=== PATIENT | female | born 1995 | race Hispanic/Latino ===

== ENCOUNTER 2017-04-27 12:48 | Outpatient (CLI) | payer OTHER ==
--- OUTSIDE RECORDS SUMMARY | 2017-04-27 13:41 | XMS | Clinical Summary ---
:1995 Author Organization [facility] Address [address] [place] [address] Phone Care Team Providers Name Role Phone , Primary Care Provider Unavailable Allergies Not on File Current Medications Not on file Active Problems Not on file Social History Tobacco Use Types Packs/Day Years Used Date Never Assessed Sex Assigned at Date Recorded Not on file Last Filed Vital Signs Not on file Plan of Treatment Not on file Results Not on filefrom Last 3 Months
--- NOTE | 2017-04-27 19:31 | ULT ---
OB ULTRASOUND: Date: 04-10-17 History: Positive . Evaluate for size and dates. FINDINGS: There is a single intrauterine gestation in breech presentation. Cardiac doppler demonstrates heart tones with a heart rate of 127 bpm. The placenta is located anteriorly and is low lying. However, the low lying appearance of the placenta may be related to distention of the urinary bladd er falsely giving the appearance of a low lying placenta. Follow up evaluation is recommended. There is a normal amount of amniotic fluid with an amniotic fluid index of 10.5 cm. The cervical length b ased on transabdominal imaging is 4.49 cm. measurements: BPD: 5.32 cm 22 weeks 1 day HC 20.62 cm 22 weeks 5 days AC 17.8 cm 22 weeks 5 days FL 4.1 cm 23 weeks 2 days Estimated gestational age by ultrasound is 22 weeks 4 days with an JOLIE on 08-27-17. Gestational age by the last menstrual period is 23 weeks 1 day. Estimated weight by ultrasound is 544 grams (l lbs. 3 oz). This represents 31 percentile for f etal weight. The cerebellum, visualized portions of the spine, four chamber heart, stomach, bilateral kidne ys, urinary bladder, three vessel cord, and cord insertion demonstrate a normal sonographic appearan ce. There is mild prominence of each renal pelvis, but the AP dimension measures less than 5 mm whic h is within normal limits for patient's gestational age. No definite anomaly is appreciated. IMPRESSION: 1. Low lying placenta. However, the urinary bladder is distended which may give false impression of low lying placenta. As a result, follow up evaluation is recommended in four weeks. 2. Single intrauterine gestation in breech presentation with heart tones documented. Estimated gestational age by ultrasound is 22 weeks 4 days with an JOLIE on 08-27-17. 3. Estimated weight is 544 grams (1 lbs. 3 oz). 4. Amniotic fluid index is 10.5 cm. POS: [facility]
== END 2017-04-27 12:49 | disposition home or self-care (01) ==
LOC: SCSULT 12:48
PROVIDERS: ATTEND Family Medicine
DX: N91.2 Amenorrhea, unspecified (principal)
CPT/HCPCS: 76805

== ENCOUNTER 2017-07-10 10:11 | Day surgery (SDC) | payer OTHER ==
[2017-07-10 10:49] VITALS: BMI 21.6
[2017-07-10] MEDS ORDERED: Ondansetron HCl/PF 4 MG/2 ML Vial IVP PRN (11:05)
[2017-07-10] MEDS ORDERED: Lactated Ringer's 1,000 ML IV SCH (11:15)
[2017-07-10 11:37] LABS: Bilirubin Negative (Negative); Blood, Urine Negative (Negative); Clarity CLEAR (Clear); Glucose, Urine (Dipstick) Negative (Negative); Leukocyte Trace (Negative); Nitrite Negative (Negative); Protein, Urine (Dipstick) 30 mg/dL (Neg-Trace); Specific Gravity, Urine 1.023 (1.002-1.036)
[2017-07-10 11:39] LABS: Bacteria/HPF Rare-Few HPF (None Seen); Hyaline Casts/LPF 4-6 HYALINE CAST LPF (0-3 Hyaline); Pathc Cast-AUWi Flag 1.35 (0-2.49); RBC/HPF 0-3 HPF (0-3)
[2017-07-10] MEDS: D5 LR 500 ML IV SCH ×2 (11:45→13:45)
[2017-07-10] MEDS ORDERED: Dextrose 5%-Lactated Ringers 1,000 ML IV SCH (12:15)
[2017-07-10] MEDS ORDERED: D5 LR 1,000 ML IV SCH (12:15)
[2017-07-10] MEDS ORDERED: Famotidine/PF 20 mg/2ml Vial SLOW IVP SCH (14:03)
[2017-07-10] MEDS: FLU VACC QS2017-18 36 mo. & older 0.5 ML SYRINGE IM ONE ×2 (15:29→15:34)
--- NOTE | 2017-07-11 09:03 | PRG ---
DATE OF SERVICE: 07/10/2017 CHIEF COMPLAINT: Nausea, vomiting. HISTORY OF PRESENT ILLNESS: At the time of presentation, Ms. Rock is a 3 female, 33 wee ks 4 days, who presents with complaints of nausea, vomiting over the last 2-3 days. She says there h as been some associated acid reflux type symptoms, but no diarrhea. No fever or chills. The patien t reports a cough that is productive of a thick white sputum and positive sick contacts with her niec es and nephews. She has also had recent travel to [place]. She reports bodyaches and states that she did not receive the flu shot. She denies any hematuria or dysuria. She reports good movement . Denies any vaginal bleeding, leakage of fluid or contractions. PAST MEDICAL HISTORY: Negative. PAST SURGICAL HISTORY: Lasik. OBSTETRICAL HISTORY: Current uncomplicated. MEDICATIONS: 1. Mucinex. 2. vitamins. ALLERGIES: No known drug allergies. PHYSICAL EXAMINATION: VITAL SIGNS: Temperature 98.1, pulse 113, respiratory rate 18-20. GENERAL: Well-appearing female, coughing, but otherwise nontoxic, no acute distress. HEENT: Normocephalic, atraumatic. LUNGS: Diffuse rhonchi that clear after coughing, no rales. CARDIOVASCULAR: Regular rate and rhythm. ABDOMEN: Gravid, nontender. OBSTETRIC: Category 1 tracing. Tocodynamometer showed some mild irritability. LABORATORY DATA: Influenza screen is negative. Urinalysis notable for greater than 80 ketonuria, 30 protein, specific gravity 1.023, white blood cell count 4-6, squamous epithelial for 7-10, red blood cells 0-3. ASSESSMENT AND PLAN: 1. A 33 week 4 day intrauterine with category 1 tracing. 2. Nausea, vomiting. May be associated with the patient's respiratory condition. She was hydrated with lactate ringers and D5 LR. She was treated with Zofran and Pepcid and was able to tolerate p.o. She was discharged to home on Zofran and Pepcid with instructions to follow a bland diet and if she is unable to may obtain hydration with fluids she does nature return to the hospital. 3. Cough. Negative influenza screen. The patient is instructed that she may take Mucinex or Mucine x DM. If she becomes febrile or has worsening of her symptoms she does needed contact her primary ob kalpeshian, Dr. Jacques.
== END 2017-07-10 15:45 | disposition home or self-care (01) ==
LOC: L&D/OP 10:11
PROVIDERS: ATTEND Family Medicine
DX: O99.89 Other specified diseases and conditions complicating pregnancy, childbirth and the puerperium (principal); R11.2 Nausea with vomiting, unspecified; R05 Cough; Z3A.33 33 weeks gestation of pregnancy; Z79.899 Other long term (current) drug therapy; Z98.890 Other specified postprocedural states
CPT/HCPCS: 81001; 96360; 96361; 96372; 96375; 99282; J2405; S0028

== ENCOUNTER 2017-08-27 15:16 | Day surgery (SDC) | payer OTHER ==
[2017-08-27 15:58] VITALS: BMI 21.8
--- NOTE | 2017-08-27 18:34 | PRG ---
DATE OF SERVICE: 08/27/2017 PRIMARY OB: Dr. Kurt Jacques CHIEF COMPLAINT: Abdominal pain. HISTORY OF PRESENT ILLNESS: The patient is a 22-year-old female with an intrauterine at 40 weeks and 2 days, who is presenting to Labor and Delivery with abdominal pain and with a mucou sy discharge. The patient reports that she started having contractions this morning at about 4:00 a. m. They have been present, but have not been painful. The patient was able to take 2 exams at [facility] today before coming for evaluation. The patient denies any leaking fluid or vaginal bleeding. She denies any recent fever. She has had a cough, but is getting better. Denies nausea, vomiting, diar woody, or constipation. Denies new rash. Denies hip or back or leg pains. Denies urinary urgency. Denies chest pain or shortness of breath. PAST MEDICAL HISTORY: Negative. PAST SURGICAL HISTORY: LASIK. ALLERGIES: No known drug allergies. MEDICATIONS: vitamins. SOCIAL HISTORY: Denies drug, alcohol or tobacco use. 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 OB LABS: One-hour Glucola is 84. RPR is nonreactive. Hepatitis B surface antigen nonreactive, HIV nonreactive. She is rubella immune. GBS culture is negative. Blood type is O positive. REVIEW OF SYSTEMS: Per HPI. PHYSICAL EXAMINATION: VITAL SIGNS: Blood pressure was 109/64, heart rate of 82, respiratory rate of 16, satting 99% on philipp m air, temperature 98.2. GENERAL: She appears to be in no acute distress. She is alert and oriented, cooperative and pleasan t to interact with. HEENT: Normocephalic, atraumatic. LUNGS: Clear to auscultation bilaterally. HEART: Regular rate and rhythm. ABDOMEN: Soft and nontender in between contractions. EXTREMITIES: Nontender, nonedematous. CERVICAL EXAM: Per nursing staff is closed, 20%, -3 station. heart tracing performed for threatened labor, interpreted by Dr. Swanson. Duration is about on e hour. Baseline is noted to be in the 140s with moderate long-term variability, positive accelerati ons, no decelerations. Her contraction pattern shows irregular contractions with 7-8 minutes apart w ith irritability in between. ASSESSMENT AND PLAN: The patient is a 22-year-old female who is with an intrauterine at 40 weeks who is here to evaluate for labor. She has no evidence of active labor at this time, baby has a category 1 tracing and reactive NST. The patient has been given reassurance. She has been given term labor precautions and has been discharged home. She lives about 10-15 minutes from the hospital , has an appointment next Thursday with Dr. Jacques, her primary OB.
== END 2017-08-27 17:09 | disposition home or self-care (01) ==
LOC: L&D/OP 15:16
PROVIDERS: ATTEND Family Medicine
DX: O99.89 Other specified diseases and conditions complicating pregnancy, childbirth and the puerperium (principal); R10.9 Unspecified abdominal pain; Z3A.40 40 weeks gestation of pregnancy; Z79.899 Other long term (current) drug therapy
CPT/HCPCS: 99282

== ENCOUNTER 2017-08-28 02:54 | Inpatient (IN) | payer OTHER ==
[2017-08-28 03:29] VITALS: BMI 21.8
--- NOTE | 2017-08-28 07:02 | PRG ---
DATE OF SERVICE: 08/28/2017 PRIMARY OB: Dr. Kurt Jacques CHIEF COMPLAINT: Abdominal pains. HISTORY OF PRESENT ILLNESS: The patient is a 22-year-old G1, P0 female with an intrauterine pregnanc y at 40 weeks and 3 days who is representing with increased intensity of abdominal pains. The patien t was seen yesterday afternoon and sent home in latent labor. The patient reports contractions are n ow every 5-6 minutes and much more intense. She denies leakage of fluid or vaginal bleeding, has had no other complaints. PAST MEDICAL HISTORY: Negative. PAST SURGICAL HISTORY: She had Lasik surgery. ALLERGIES: No known drug allergies. MEDICATIONS: vitamins. SOCIAL HISTORY: Denies drug, alcohol or tobacco use. OB LABS: Blood type is O positive. She is GBS negative. REVIEW OF SYSTEMS: The patient has denied fever, headache, fall, nausea, vomiting, diarrhea, constip ation, new rash, hip problems or leg problems, chest pain or shortness of breath. PHYSICAL EXAMINATION: VITAL SIGNS: Blood pressure is 131/84, heart rate 79, respiratory rate of 18, satting 100% on room a ir. GENERAL: She appears to be in some distress with the contractions. She is alert and oriented, coope rative and pleasant to interact with. HEENT: Head is normocephalic, atraumatic. LUNGS: Clear to auscultation bilaterally. HEART: Regular rate and rhythm. ABDOMEN: Soft in between contractions. EXTREMITIES: Nontender, nonedematous. CERVICAL EXAM: She is 1, 80 and -2 station. Repeat 2 hours later she is still 1, 80, -2 station. heart tracing performed for threatened labor. Baseline is noted to be in the 120s with moderat e long-term variability, positive accelerations, no decelerations. Tocometer shows contractions abou t every 4-5 minutes with some irregularity. ASSESSMENT AND PLAN: The patient is a 22-year-old female who is in latent labor at 40 weeks and 3 da ys with a reassuring fetus and is GBS negative. The patient has represented twice and in the last 24 hours for pain. She has been given some pain medication while she is here. I have kept her here in Labor and Delivery for Dr. Kurt Jacques to reevaluate. The patient is very uncomfortable and may be nefit from augmenting her labor.
--- NOTE | 2017-08-28 08:48 | HP ---
HISTORY OF PRESENT ILLNESS: This is a 22-year-old Latin-Malays[place] female at 40 weeks gestation with EDC of 08/25/2017 who presents with regular contractions. She has been monitored in Labor and D elivery and she has progressed from 1-2 cm, 90% effaced with a +1 on presentation. course h as been uncomplicated. She is in the middle of her mid-term exams at &. PAST MEDICAL HISTORY: Unremarkable. PAST SURGICAL HISTORY: Lasik eye surgery. ALLERGIES: None. FAMILY HISTORY: Father with diabetes. 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 She is . PHYSICAL EXAMINATION: VITAL SIGNS: Stable, afebrile. HEENT: Clear. HEART: Clear. Regular rate and rhythm. LUNGS: Clear. ABDOMEN: Soft, gravid. EXTREMITIES: With no edema. CERVICAL EXAM: Cervix 2 cm, 90+1, +1. LABORATORY: GBS is negative. TSH negative, hepatitis B negative, RPR negative. Urine culture negat daniel. Rubella immune. O positive blood type, HIV negative. Hematocrit 34.4. ASSESSMENT: 1. A 40-week intrauterine . 2. Active labor. PLAN: 1. Admit to L&D. 2. Routine L&D orders. 3. We will continue to follow.
[2017-08-28] MEDS ORDERED: Bupivacaine 0.25% HCL 30 ML VIAL ONE (11:11)
[2017-08-28 13:36] LABS: Hemoglobin 12.2 g/dL (12.0-16.0); Mean Corpuscular HGB CONC 33.1 g/dL (32.0-36.0); Mean Corpuscular Volume 90.6 fl (77.0-87.0); Mean Platelet Volume 10.6 fL (7.4-10.4); Platelet Count 156 thou/uL (130-400); RBC Distribution Width 12.5 % (11.5-14.5); Red Blood Cell (RBC) Count 4.06 mill/uL (4.00-5.20); White Blood Cell (WBC) Count 8.9 thou/uL (4.8-10.8)
[2017-08-28] MEDS ORDERED: Promethazine HCl 25 MG/ML VIAL IM PRN ×2 (13:40→15:20)
[2017-08-28] MEDS ORDERED: Ondansetron HCl/PF 4 MG/2 ML Vial IVP PRN ×2 (13:40→15:20)
[2017-08-28] MEDS ORDERED: Acetaminophen 500 MG TAB PO PRN (13:40)
[2017-08-28 14:30] LABS: HBSAg Index 0.16 S/CO (0-0.99); Hep B Surf Ag Non-Reactive S/CO (NonReactive)
[2017-08-28 14:31] LABS: Syphilis Antibody Nonreactive (Nonreactive); Syphilis Antibody Index 0.04 S/CO (<1.00 Non-Reactive)
[2017-08-28] MEDS: Lactated Ringer's 1,000 ML IV SCH ×2 (14:51→22:14)
[2017-08-28] MEDS: Bupivacaine 0.5% 20 ML, Fentanyl 400 MCG in Sodium Chloride 0.9% 72 ML EPIDURAL SCH ×2 (14:51→21:10)
[2017-08-28] MEDS ORDERED: LR 500 ML/Oxytocin 10 units 500 ML ONE (15:18)
[2017-08-28] MEDS ORDERED: Lactated Ringer's 500 ML IV PRN (15:20)
[2017-08-28] MEDS ORDERED: Acetaminophen 325 MG TAB PO PRN (15:20)
[2017-08-28] MEDS ORDERED: diphenhydrAMINE 50 MG/ML VIAL IVP PRN (15:20)
[2017-08-28] MEDS ORDERED: Naloxone HCl 0.4 mg/ml Vial IVP PRN ×2 (15:20)
[2017-08-28] MEDS ORDERED: Eucerin (Mineral Oil/Petrolatum,White) 30 gm Jar TOP PRN (15:20)
[2017-08-28] MEDS ORDERED: ePHEDrine/0.9% NaCl/PF SYRINGE 50 mg/10 ml SLOW IVP PRN (15:20)
[2017-08-28] MEDS ORDERED: Communication Order-Pharmacy FS SCH (15:30)
[2017-08-28] MEDS ORDERED: Fentanyl 4mcg/Marcaine 0.1% Cassette 100 ML EPIDURAL SCH (15:30)
[2017-08-28] MEDS ORDERED: LR 500 ML/Oxytocin 10 units 500 ML IVPB SCH (15:45)
[2017-08-28] MEDS ORDERED: Lidocaine 1% (PF) 30 ML VIAL ONE (19:41)
[2017-08-28] MEDS: LR / Pitocin 40 units/1000 ml 1,000 ML ONE ×2 (22:13→23:16)
[2017-08-28] MEDS ORDERED: Preparation H Ointment 28 GM TUBE PR PRN (23:10)
[2017-08-28] MEDS ORDERED: Milk Of Magnesia 30 ML UDCUP PO PRN (23:10)
[2017-08-28] MEDS ORDERED: Lanolin Ointment 7 GM TUBE TOP PRN (23:10)
[2017-08-28] MEDS ORDERED: LR / Pitocin 40 units/1000 ml 1,000 ML IV SCH (23:10)
[2017-08-28] MEDS ORDERED: Bisacodyl 10 MG SUPP PR PRN (23:10)
[2017-08-29] MEDS: Ibuprofen 800 MG TAB PO SCH ×4 (00:04→22:02)
--- NOTE | 2017-08-29 03:44 | OP ---
DATE OF DELIVERY: 08/28/2017 PREOPERATIVE DIAGNOSIS: Term intrauterine . POSTOPERATIVE DIAGNOSIS: Term intrauterine . PROCEDURE PERFORMED: Normal spontaneous vaginal delivery and second-degree perineal laceration malika gallardo SURGEON: Christy Giraldo M.D. ANESTHESIA: Epidural. ESTIMATED BLOOD LOSS: 300 mL. BRIEF DELIVERY SUMMARY: This is a 22-year-old G1, now P1 who presented in active labor. She progres sed after Pitocin augmentation to complete and pushing, she delivered a live male , head OA. M outh and nares were bulb suctioned at the perineum. There was no nuchal cord, although a loop of cor d did deliver with the shoulders. Shoulders and body easily followed and the was placed on mo ther's abdomen. Infant Apgars were 9 at one minute and 9 at five minutes. Cord blood was collected and sent for analysis. Placenta delivered spontaneously and intact with 3-vessel umbilical cord. Ut erine fundus was firm, following evacuation of the placenta. There was a second-degree midline perin eal laceration, which was repaired in standard running fashion using 2-0 Vicryl suture under epidural anesthesia with excellent hemostasis. Mom and baby were left with the nurse in excellent condition attempting to breast feed.
[2017-08-29] MEDS ORDERED: Ibuprofen 800 MG TAB PO SCH (06:15)
[2017-08-29] MEDS: Ferrous Sulfate 325 MG TAB PO SCH ×2 (09:20→16:55)
[2017-08-29] MEDS: HYDROcodone/Acetaminophen 5/325 mg Tablet PO PRN ×2 (09:51→20:19)
[2017-08-29] MEDS: Docusate Calcium (SURFAK) 240 MG CAP PO SCH ×2 (09:51→20:19)
[2017-08-29] MEDS: Benzocaine/Menthol 20-0.5% 60 ML CAN TOP PRN (20:20)
[2017-08-30] MEDS: HYDROcodone/Acetaminophen 5/325 mg Tablet PO PRN ×4 (01:02→18:10)
[2017-08-30] MEDS: Ibuprofen 800 MG TAB PO SCH ×2 (06:02→13:27)
[2017-08-30] MEDS: Ferrous Sulfate 325 MG TAB PO SCH ×2 (09:22→16:35)
[2017-08-30] MEDS: Docusate Calcium (SURFAK) 240 MG CAP PO SCH (09:55)
[2017-08-30 10:06] VITALS: BP 111/67; TEMP 98.1
[2017-08-30] MEDS: Benzocaine/Menthol 20-0.5% 60 ML CAN TOP PRN (16:51)
[2017-08-30] MEDS ORDERED: Adacel (T-DAP) 0.5 ML VIAL IM ONE (17:00)
== END 2017-08-30 18:25 | disposition home or self-care (01) | DRG 775 ==
LOC: L&D/OP 02:54 → L&D 07:57 → L&D-LIB 08:52 → L&D 15:27 → 3SW 08-29 01:06
PROVIDERS: ADMIT Family Medicine; ATTEND Family Medicine
PROC: 10E0XZZ Delivery of Products of Conception, External Approach (ICD-10-PCS; principal; 2017-08-28)
PROC: 3E0234Z Introduction of Serum, Toxoid and Vaccine into Muscle, Percutaneous Approach (ICD-10-PCS; 2017-08-28)
DX: O48.0 Post-term pregnancy (principal); O70.1 Second degree perineal laceration during delivery; Z3A.40 40 weeks gestation of pregnancy; Z37.0 Single live birth; Z23 Encounter for immunization
CPT/HCPCS: 51702; 85027; 86780; 87340; 99282; 99285; J2001; J2405; J3010; J3490; J7050; J7120; S0020